=== PATIENT | male | born 1960 | race Caucasian/White ===

== ENCOUNTER 2017-12-22 21:30 | Emergency (ER) | payer BC ==
[~2017-12-22] VITALS: Ht 193 cm; Wt 129.3 kg
[~2017-12-22 21:30] MED LIST: GLUCOPHAGE500 MG PO; LISINOPRIL20 MG PO; NORVASC 5 MG TAB5 MG PO
[2017-12-22] MEDS ORDERED: TOUJEO MAX300 UNIT/1 (21:39)
[2017-12-22 22:47] VITALS: BP 186/82
== END 2017-12-22 22:48 | disposition home or self-care (01) ==
LOC: M.ERS 21:30
DX: S93.492A Sprain of other ligament of left ankle, initial encounter (principal); I10 Essential (primary) hypertension; E78.00 Pure hypercholesterolemia, unspecified; E11.9 Type 2 diabetes mellitus without complications; Z90.49 Acquired absence of other specified parts of digestive tract; Z88.1 Allergy status to other antibiotic agents; Z79.4 Long term (current) use of insulin; X58.XXXA Exposure to other specified factors, initial encounter; Y93.89 Activity, other specified; Y92.89 Other specified places as the place of occurrence of the external cause; Y99.8 Other external cause status